=== PATIENT | male | born 1980 | race Caucasian/White ===

== ENCOUNTER 2021-03-20 13:24 | Emergency (ER) | payer MEDICAID ==
[~2021-03-20] VITALS: Ht 185.4 cm; Wt 93.9 kg
[2021-03-20 13:30] VITALS: BP 122/80
--- NOTE | 2021-03-20 13:32 | NUR ---
PT AMBULATED TO BED 7.
[2021-03-20 13:41] VITALS: BP 122/80
--- NOTE | 2021-03-20 13:41 | NUR ---
41 Y/O MALE C/O JAW PAIN FOR 3 MONTHS. PT STATES HAS NOT SEEN DENTIST. PT STATES 10/10 SHARP, CONSTANT PAIN RADIATING THROUGHOUT FACE. DENIES ANY RECENT COUGH, FEVER, OR SOB. RX: IBUPROFEN WITH NO RELIEF MEDHX: DENIES NKA
--- NOTE | 2021-03-20 13:41 | NUR ---
DR BERRIOS AT BEDSIDE EXAMINING PT
[2021-03-20] MEDS ORDERED: KETOROLAC 15 MG/ML VIAL IM ONE (13:45)
--- NOTE | 2021-03-20 14:00 | NUR ---
Dr. Baig is reevaluating the patient at bedside.
[2021-03-20] MEDS ORDERED: AMOX500C25 PO (14:06)
[2021-03-20] MEDS ORDERED: IBUP-2213 PO (14:06)
--- NOTE | 2021-03-20 14:11 | NUR ---
Patient discharged with v/s stable. Written and verbal after care instructions given and explained. Patient alert, oriented and verbalized understanding of instructions. Ambulatory with steady gait. All questions addressed prior to discharge. ID band removed. Patient advised to follow up with PMD. Rx of AMOXICILLIN AND IBUPROFEN given. Patient educated on indication of medication including possible reaction and side effects. Opportunity to ask questions provided and answered.
== END 2021-03-20 14:11 | disposition home or self-care (01) ==
LOC: MED 13:24
DX: K02.9 Dental caries, unspecified (principal); F17.210 Nicotine dependence, cigarettes, uncomplicated; Z79.899 Other long term (current) drug therapy
CPT/HCPCS: 96372; 99283; J1885